=== PATIENT | female | born 1960 | race Caucasian/White ===

== ENCOUNTER 2019-04-05 15:25 | Emergency (ER) | payer OTHER, MEDICAID, SELFPAY ==
[2019-04-05 15:36] VITALS: BP 143/82; PULSE 75; RESP 17; TEMP 36.7; O2SAT 93
[2019-04-05 16:16] VITALS: BP 137/73; PULSE 71; RESP 16
[2019-04-05] MEDS: KETOROLAC 60 MG/2 ML VIAL IM (17:29)
[2019-04-05 17:42] VITALS: BP 150/75; PULSE 63; RESP 20; O2SAT 91
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
== END 2019-04-05 18:10 | disposition home or self-care (01) ==
PROVIDERS: Emergency Provider Nurse Practitioner Family
DX: M54.6 Pain in thoracic spine (principal); V43.52XA Car driver injured in collision with other type car in traffic accident, initial encounter
CPT/HCPCS: 99282; 99283; J1885